=== PATIENT | male | born 1995 | race African-American/Black ===

== ENCOUNTER 2023-05-16 11:35 | Emergency (ER) | payer MEDICAID, OTHER ==
[~2023-05-16] VITALS: Ht 188 cm; Wt 90.3 kg
[2023-05-16 12:25] VITALS: TEMP 98.5; O2SAT 98
[2023-05-16] MEDS ORDERED: BACITRACIN ZINC OINT UDPKT TOP ONE (14:00)
[2023-05-16] MEDS ORDERED: LIDOCAINE HCL/PF 1% 10 MG/ML 5ML VIAL INFIL ONE (14:00)
[2023-05-16] MEDS ORDERED: AMOX1TAB16 MT (14:05)
[2023-05-16] MEDS ORDERED: IBUP-2029 MT (14:05)
[2023-05-16 15:00] VITALS: BP 124/73; PULSE 82; RESP 16
[2023-05-16] MEDS ORDERED: IBUPROFEN 600MG TABLET PO ONE (15:00)
== END 2023-05-16 15:34 | disposition home or self-care (01) ==
LOC: ER 11:35
DX: K61.0 Anal abscess (principal)
CPT/HCPCS: 87070; 87186; 87205; 87077; 10060; 99283; J3490; Z7610

== ENCOUNTER 2023-06-19 19:14 | Emergency (ER) | payer OTHER ==
[~2023-06-19] VITALS: Ht 190.5 cm; Wt 83.9 kg
[~2023-06-19 19:14] MED LIST: AMOX1TAB16 MT; IBUP-2029 MT
[2023-06-19 19:23] VITALS: BP 122/67; PULSE 84; RESP 16; TEMP 99.2; O2SAT 99
== END 2023-06-20 01:00 | disposition left against medical advice (07) ==
LOC: ER 19:14
DX: Z53.21 Procedure and treatment not carried out due to patient leaving prior to being seen by health care provider (principal)
CPT/HCPCS: 99281

== ENCOUNTER 2023-11-30 10:56 | Emergency (ER) | payer OTHER ==
[~2023-11-30] VITALS: Ht 190.5 cm; Wt 89.0 kg
[2023-11-30 11:06] VITALS: TEMP 98.4; O2SAT 97
[2023-11-30] MEDS ORDERED: KETOROLAC 30MG/ML VIAL IM ONE (12:15)
[2023-11-30] MEDS ORDERED: CYCLOBENZAPRINE 10MG TABLET PO ONE (12:15)
[2023-11-30] MEDS ORDERED: KETOROLAC 30MG/ML VIAL IM NR (15:00)
[2023-11-30] MEDS ORDERED: CYCLOBENZAPRINE 10MG TABLET PO NR (15:00)
[2023-11-30] MEDS ORDERED: LIDO700A15 TP (15:08)
[2023-11-30] MEDS ORDERED: NAPR-1176 MT (15:08)
[2023-11-30 15:34] VITALS: BP 113/70; PULSE 57; RESP 16
== END 2023-11-30 15:37 | disposition home or self-care (01) ==
LOC: ER 10:56
DX: M54.2 Cervicalgia (principal)
CPT/HCPCS: 99283; 96372; J1885